=== PATIENT | female | born 1955 | race African-American/Black ===

== ENCOUNTER 2022-08-28 14:02 | Emergency (ER) | payer MEDICARE, OTHER, SELFPAY ==
[2022-08-28] MEDS ORDERED: EPINEPHrine 1 MG/10 ML Abboject SYRINGE ONE (14:03)
== END 2022-08-28 14:15 | disposition expired ==
LOC: EDBD 14:02 → ERS 14:02 → EDSEX 14:02 → ERS 14:15
DX: S09.90XA Unspecified injury of head, initial encounter (principal); S27.1XXA Traumatic hemothorax, initial encounter; S81.801A Unspecified open wound, right lower leg, initial encounter; I46.9 Cardiac arrest, cause unspecified; V09.9XXA Pedestrian injured in unspecified transport accident, initial encounter
CPT/HCPCS: 31500; 36430; 86850; 86900; 86901; 86920; 92950; 99285; P9016; G0390; J0171